=== PATIENT | female | born 1975 | race Caucasian/White ===

== ENCOUNTER 2020-01-26 15:48 | Outpatient (CLI) | payer OTHER, SELFPAY ==
--- NOTE | ~2020-01-26 | XR_ITS ---
XR chest 2V 01/26/2020 16:26 Indication: Cough. Covid Positive. Procedure: 2 view chest Comparison: No prior studies for comparison. Findings: Heart size is normal. Calcified granulomas right mid thorax. No focal air space disease, pu lmonary edema, pleural effusion or suspected pneumothorax. There is scoliosis. No acute osseous abnor mality. Impression: 1: No acute cardiopulmonary disease. Reviewed, dictated and finalized at location A. DESK TEAM LEADER Impression: 1: No acute cardiopulmonary disease.
== END 2020-01-26 15:49 | disposition home or self-care (01) ==
LOC: ANHIMG 15:59
PROVIDERS: PCP Family Medicine; Visit Provider Physician Assistant
DX: R05 Cough (principal)
CPT/HCPCS: 71046

== ENCOUNTER 2022-01-17 09:17 | Outpatient (CLI) | payer OTHER, SELFPAY ==
--- NOTE | ~2022-01-17 | MM_ITS ---
EXAMINATION: MM screening sumit BI w onelia HISTORY: Baseline screening mammogram TECHNIQUE: Craniocaudal and mediolateral oblique 3-D tomosynthesis images were obtained and synthetic 2-D images were generated. CAD analysis was submitted and interpreted. COMPARISON: None, baseline BREAST PARENCHYMAL COMPOSITION: The breasts are almost entirely fatty. FINDINGS: RIGHT BREAST: No suspicious mass, calcification, or architectural distortion are identified to sugges t malignancy. LEFT BREAST: There is possible architectural distortion in the middle third of the upper inner quadra nt of the breast. An asymmetry is also noted in the posterior third far outer breast approximately 15 cm from the nipple on the craniocaudal view. IMPRESSION: 1. Left breast asymmetry and possible left breast architectural distortion. 2. Additional mammographic views and possible breast ultrasound are recommended. BI-RADS Category 0: Incomplete: Needs additional imaging evaluation. Reviewed, dictated and finalized at location A. IOLOGY TEACHER IMPRESSION: 1. Left breast asymmetry and possible left breast architectural distortion. 2. Additional mammographic views and possible breast ultrasound are recommended . BI-RADS Category 0: Incomplete: Needs additional imaging evaluation.
== END 2022-01-17 09:18 | disposition home or self-care (01) ==
LOC: ANHIMG 09:20
PROVIDERS: PCP Family Medicine; Visit Provider Obstetrics & Gynecology
DX: Z12.31 Encounter for screening mammogram for malignant neoplasm of breast (principal); R92.8 Other abnormal and inconclusive findings on diagnostic imaging of breast
CPT/HCPCS: 77063; 77067

== ENCOUNTER 2022-02-07 11:22 | Outpatient (CLI) | payer OTHER, SELFPAY ==
--- NOTE | ~2022-02-07 | MMUS_ITS ---
EXAMINATION: MM diagnostic sumit LT w onelia, US breast LT limited HISTORY: Left breast asymmetry and possible architectural distortion on 01/17/2022 screening mammogram TECHNIQUE: Additional 3-D tomosynthesis images of the left breast were performed and synthetic 2-D im ages were generated. CAD analysis was submitted and interpreted. High resolution upper inner quadrant left breast ultrasound was performed. COMPARISON: 01/17/2022 bilateral screening mammogram FINDINGS: MAMMOGRAPHIC FINDINGS: The asymmetric density in the posterior outer left breast on 01/17/2022 screening mammogram is not con firmed on coned compression view and is mild of significance. No suspicious reproducible mass on orthogonal views or architectural distortion, malignant calcificat ion, skin thickening or retraction of the left breast is noted otherwise. ULTRASOUND: Upper inner quadrant left breast ultrasound examination was performed, including the area of possible architectural distortion suggested on 01/17/2022 screening mammogram examination. No suspicious mass or shadowing or other significant sonographic abnormality is identified. IMPRESSION: 1. No mammographic evidence of malignancy 2. Routine mammographic screening is recommended BI-RADS Category 1: Negative Reviewed, dictated and finalized at location A. HEATER IMPRESSION: 1. No mammographic evidence of malignancy 2. Routine mammographic screening is recommended BI-RADS Category 1: Negative
== END 2022-02-07 11:23 | disposition home or self-care (01) ==
PROVIDERS: PCP Family Medicine; Visit Provider Obstetrics & Gynecology
DX: N64.89 Other specified disorders of breast (principal)
CPT/HCPCS: 76642; 77061; 77065; G0279

== ENCOUNTER 2022-07-15 01:30 | Day surgery (SDC) | payer OTHER, SELFPAY ==
[2022-07-04 12:31] VITALS: BMI 46.9
[2022-07-15 08:11] VITALS: BP 130/93; PULSE 94; RESP 16; TEMP 36.1; O2SAT 97; BMI 47.6
[2022-07-15] MEDS: LACTATED RINGERS 1,000 ML 150 ML IV CONT (08:23)
--- NOTE | 2022-07-15 08:46 | WPDANESEPPF ---
Anes - Initial Pre Proc Eval Procedure: Operation Date: 07/15/22 09:30 Proposed Procedures p Screening Colonoscopy - Medhat Melgar MD Date/Time: 07/15/22 08:46 Surgeon: Medhat Melgar MD Pre Op Diagnosis: fam hx of colon polyps Patient Data Age: 46 Gender: F Height: 1.65 m Weight: 129.9 kg Last Vital Signs Temp 36.1 C L 07/15/22 08:11 Pulse 94 07/15/22 08:11 Resp 16 07/15/22 08:11 BP 130/93 H 07/15/22 08:11 Pulse Ox 97 07/15/22 08:11 O2 Del Method Room Air 07/15/22 08:11 Allergies Allergy/AdvReac Type Severity Reaction Status Date / Time No Known Allergies Allergy Verified 07/15/22 08:10 Home Medications Medication Instructions Recorded Confirmed Type levonorgestrel 21 mcg/24 hours (8 1 device intrauterine ONCE 11/08/21 07/15/22 History yrs) 52 mg intrauterine device (Mirena) Patient hx anesthesia problems: none Family hx anesthesia problems: none Results Review: All pre-operative results and documents have been reviewed as part of the pre-operative evaluation. COUNT INCLUDES THE [facility] Past Medical History Medical History Breast asymmetry Encounter for insertion of mirena IUD 11/15/2015 Screening mammogram for breast cancer Vaginal delivery Surgical History Surgical History H/O gynecological procedure cervical biopsy/colposcopy---benign History of appendectomy Hx of tonsillectomy Family History Family History Father Diabetes mellitus Brain tumor Mother Emphysema lung Memory loss Alzheimer's dementia Cerebrovascular accident Cancer of kidney Social History Social History Smoking packs per day: 0.5 Smoking cigarettes per day: 10.0 Years smoked: 7 Smoking pack-years: 3.50 Smoking status: Former smoker Tobacco type: cigarettes Additional smoking assessment comments: smoked off and on for 7 years. 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 Gender identity (if verbalized by the patient): Female Sexual Orientation (if Verbalized by the Patient): Straight or Heterosexual Spiritual care concerns: No Anes - Eval Final PreProcedure Day of Procedure 07/15/22 08:46 Patient weight: morbidly obese Heart: regular rate and rhythm Lungs: clear to auscultation Airway: Mallampati scale class II Neurological: alert and oriented Last oral intake: >/= 8 hours ASA classification: III Emergent: no Anesthetic plan: proceed Anesthesia type and monitoring: general GIVS and standard monitoring Results Review: All pre-operative results and documents have been reviewed as part of the pre-operative evaluation. Informed Consent: The patient's anesthetic plan and its attendant risks and benefits were discussed with the patient/family/POA. Questions were solicited and answers provided to the satisfaction of the patient/family/POA.
--- NOTE | 2022-07-15 09:04 | PM.HPGS ---
History of Present Illness History of Present Illness Consent: Risks, benefits, and alternatives have been discussed and questions answered. Patient agrees to proceed with procedure. Chief complaint: fam hx of colon polyps Narrative: Britni Taylor is a 46 year old female here for first screening colonoscopy Review of Systems Constitutional: Constitutional: Denies headache(s) and Denies weakness Eyes: Eyes: Denies blurry vision ENT: Reports Normal hearing present, Denies headache(s) and Denies neck pain Cardiovascular: Cardiovascular: Denies chest pain and Denies dyspnea Respiratory: Respiratory: Denies dyspnea Gastrointestinal: Gastrointestinal: Reports no additional gastrointestinal complaints Genitourinary: Genitourinary: Denies dysuria Musculoskeletal: Musculoskeletal: Denies neck pain Integumentary/Breasts: Skin/Breast: Denies dry skin Neurologic: Reports Normal hearing present, Denies headache(s) and Denies weakness Psychiatric: Psychiatric: Denies anxiety Endocrine: Endocrine: Denies change in body appearance Hematologic/Lymphatic: Hematologic/Lymphatic: Denies easy bleeding Allergic/Immunologic: Allergic/Immunologic: Denies urticaria PMFSH Past Medical History Medical History (Updated 07/15/22 @ 09:05 by Medhat Melgar MD) Breast asymmetry Colon cancer screening Encounter for insertion of mirena IUD 11/15/2015 Screening mammogram for breast cancer Vaginal delivery Surgical History Surgical History H/O gynecological procedure cervical biopsy/colposcopy---benign History of appendectomy Hx of tonsillectomy Family History Family History Father Diabetes mellitus Brain tumor Mother Emphysema lung Memory loss Alzheimer's dementia Cerebrovascular accident Cancer of kidney Social History Social History Smoking packs per day: 0.5 Smoking cigarettes per day: 10.0 Years smoked: 7 Smoking pack-years: 3.50 Smoking status: Former smoker Tobacco type: cigarettes Additional smoking assessment comments: smoked off and on for 7 years. Alcohol intake: never Substance use: never Substance use type: does not use Lack of Transportation: No Current Housing: I Have Housing Difficulty Paying Gas/Electric Bills: No Difficulty Paying for Meds: No Currently Unemployed: No Education: High School Diploma/GED Difficulty w/ Childcare or Family Care: No Living arrangements: with family Occupation/Education: occupation Additional occupation/education comments: VALVE ASSEMBLER Gender identity (if verbalized by the patient): Female Sexual Orientation (if Verbalized by the Patient): Straight or Heterosexual Spiritual care concerns: No Meds Home Medications and Allergies Home Medications Medication Instructions Recorded Confirmed Type levonorgestrel 21 mcg/24 hours (8 1 device intrauterine ONCE 11/08/21 07/15/22 History yrs) 52 mg intrauterine device (Mirena) Allergies Allergy/AdvReac Type Severity Reaction Status Date / Time No Known Allergies Allergy Verified 07/15/22 08:10 Vital Signs Vital Signs - 24 hr 07/15/22 08:11 Temperature 96.9 F L Pulse Rate 94 Respiratory Rate 16 Blood Pressure 130/93 H Pulse Oximetry 97 Oxygen Delivery Room Air Exam Const: General: comfortable and no acute distress HENMT: Face/Nose/Sinus: Normal nares present Eyes: General: appearance normal, both eyes and all related structures Neck: Neck: no JVD Resp: Auscultation: clear to auscultation bilaterally Cardio: Rate: regular rate Rhythm: regular rhythm GI: Inspection: non-distended GI Palp: Yes Soft to palpation Skin: General skin exam: normal color Neuro: General: gait normal Speech: normal speech Extrem: General: normal to inspection Psych: Mental St
[2022-07-15 09:24] VITALS: BP 104/61; PULSE 71; RESP 16; O2SAT 96
[2022-07-15 09:34] VITALS: BP 113/72; PULSE 66; RESP 16; O2SAT 98
[2022-07-15 09:44] VITALS: BP 109/67; PULSE 70; RESP 24; O2SAT 100
== END 2022-07-15 09:49 | disposition home or self-care (01) ==
PROVIDERS: PCP Family Medicine; Visit Provider Internal Medicine Gastroenterology
PROC: 0DJD8ZZ Inspection of Lower Intestinal Tract, Via Natural or Artificial Opening Endoscopic (ICD-10-PCS; CPT 45378; principal; 2022-07-15 09:30)
DX: Z12.11 Encounter for screening for malignant neoplasm of colon (principal); K57.30 Diverticulosis of large intestine without perforation or abscess without bleeding; K64.8 Other hemorrhoids; Z83.71 Family history of colonic polyps; Z87.891 Personal history of nicotine dependence; E66.01 Morbid (severe) obesity due to excess calories; Z68.42 Body mass index [BMI] 45.0-49.9, adult
CPT/HCPCS: 45378; J2704; J7120

== ENCOUNTER 2022-10-04 15:02 | Outpatient (CLI) | payer OTHER, SELFPAY ==
--- NOTE | ~2022-10-04 | XR_ITS ---
EXAMINATION: XR lumbar spine min 4V, XR hip RT min 3V w AP pelvis DATE: 10/04/2022 15:36 INDICATION: Leg pain and right hip pain. TECHNIQUE: 1. Anteroposterior, lateral, and bilateral oblique views of the lumbar spine, and cone-down lateral v iew of the lumbosacral junction were obtained. 2. AP view of the pelvis and AP, frog-leg lateral and crosstable lateral views of the right hip were obtained. COMPARISON: None. FINDINGS: Lumbar spine: 3 degrees lumbar levocurvature. 3 mm anterolisthesis L4 on L5 and L5 on S1. Vertebral body heights ar e normal. Mild disc height loss at L1-L2, L4-L5 and L5-S1. Mild to moderate disc height loss with deg enerative endplate osteophytes at 11-12 and T12-L1. No pars interarticularis defects. Severe bilatera l facet osteoarthritis at L4-L5 and L5-S1. Heart facet osteoarthritis in the more cephalad lumbar spi ne. Pelvis and right hip: Alignment is normal. No fracture or suspected avascular necrosis. Mild left hip osteoarthritis. Right hip and bilateral sacroiliac joint spaces are normal. IMPRESSION: 1. Mild lumbar spondylosis with moderate to severe lower lumbar predominant facet osteoarthritis. 2. Mild left hip osteoarthritis. Right hip joint space is normal. Reviewed, dictated and finalized at location A. IMPRESSION: 1. Mild lumbar spondylosis with moderate to severe lower lumbar predominant fac et osteoarthritis. 2. Mild left hip osteoarthritis. Right hip joint space is normal.
== END 2022-10-04 15:03 | disposition home or self-care (01) ==
PROVIDERS: PCP Family Medicine; Visit Provider Family Medicine
DX: M25.551 Pain in right hip (principal); M54.30 Sciatica, unspecified side; M47.816 Spondylosis without myelopathy or radiculopathy, lumbar region; M16.12 Unilateral primary osteoarthritis, left hip
CPT/HCPCS: 72110; 73502

== ENCOUNTER 2024-08-04 16:50 | Emergency (ER) | payer OTHER, SELFPAY ==
[2024-08-04 17:35] VITALS: BP 130/83; PULSE 80; RESP 18; TEMP 36.6; O2SAT 98
--- NOTE | 2024-08-04 18:16 | ED_ITS ---
HPI - Ear Problem General Chief complaint: Ear Stated complaint: Right Ear Irritation/Dizziness Time Seen by Provider: 08/04/24 16:54 Source: patient Mode of arrival: ambulatory Limitations: no limitations History of Present Illness HPI Narrative: patient is a 48-year-old female presenting with complaint of right ear irritation. Patient reports irrigating her right ear this morning, which she does often due to small ear canals. Patient states she purchase the device off of [employer] and has used that in the past without issue. Patient states while irrigating her right ear this morning, she felt some discomfort and became dizzy. States the symptoms resolved however, the discomfort has since returned. No additional complaints. *PCP called in prednisone and abx ear gtts this morning (pt was not evalu ated)--pt has not began taking these medications* Related Data Allergies Allergy/AdvReac Type Severity Reaction Status Date / Time No Known Allergies Allergy Verified 08/04/24 17:12 Review of Systems Review of Systems: CONSTITUTIONAL: Denies body aches, fever, chills, or sweats. EYES: Denies visual changes, redness, or discharge. ENT: Reports right otalgia, denies rhinorrhea, congestion, sore throat CARDIOVASCULAR: Denies chest pain, palpitations, or edema. RESPIRATORY: Denies cough or dyspnea. GASTROINTESTINAL: Denies abdominal pain, nausea, vomiting, or diarrhea. GENITOURINARY: Denies dysuria or hematuria. SKIN: Denies rash, itching, or wounds. MUSCULOSKELETAL: Denies back pain, joint pain, or myalgia. NEUROLOGIC: Denies headache, numbness, tingling, or weakness. PSYCH: Denies depression or anxiety. All systems reviewed & are unremarkable except as noted in HPI and below PMFSH Past Medical History Medical History Colon cancer screening Breast asymmetry Screening mammogram for breast cancer Encounter for insertion of mirena IUD 11/15/2015 Vaginal delivery Surgical History Surgical History H/O gynecological procedure cervical biopsy/colposcopy---benign History of appendectomy Hx of tonsillectomy Family History Family History Father Diabetes mellitus Brain tumor Mother Emphysema lung Memory loss Alzheimer's dementia Cerebrovascular accident Bladder cancer Social History Social History Smoking packs per day: 0.5 Smoking cigarettes per day: 10.0 Years smoked: 7 Smoking pack-years: 3.50 Smoking status: Former smoker Tobacco type: cigarettes Additional smoking assessment comments: smoked off and on for 7 years. 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 HEAD: Normocephalic, atraumatic. EYES: EOMI. No redness or drainage. Conjunctivae normal. ENT: Mucous membranes pink and moist. Nares clear. No rhinorrhea. cerumen impaction noted bilaterally. TMs normal bilaterally. Throat normal. Uvula midline. NECK: Normal AROM. Supple. No lymphadenopathy. CHEST: No respiratory distress. HEART: normal rate and rhythm. EXTREMITIES: Normal range of motion. No edema. SKIN: Warm, dry, no rash. Capillary refill normal. Normal skin turgor. NEURO: No focal deficits. Alert and oriented x3. Gait steady. PSYCH: Normal affect. No signs of depression or anxiety. Course Course Emergency Course: Please be advised this is a medical document. It is intended for [id number] communication. It is written in medical language and may contain unfamiliar abbreviations or verbiage. Medical documents are intended to carry relevant information, facts as evident, and the clinical opinion of the practitioner at the time of the encounter. This dictation may have been done utilizing a voice recognition system. Attempts have been made to correct errors. However, there may be uncorrected grammatical, spelling, and recognition errors present. Level of Care: Express Care Visit Vital Signs Vital signs: Vital Signs Temperature 98 F 08/04/24 17:35 Pulse Rate 80 08/04/24 17:35 Respiratory Rate 18 08/04/24 17:35 Blood Pressure 130/83 08/04/24 17:35 Pulse Oximetry 98 08/04/24 17:35 Oxygen Delivery CPAP 08/04/24 17:35 Temperature 98 F 08/04/24 17:35 Pulse Rate 80 08/04/24 17:35 Respiratory Rate 18 08/04/24 17:35 Blood Pressure 130/83 08/04/24 17:35 Pulse Oximetry 98 08/04/24 17:35 Oxygen Delivery CPAP 08/04/24 17:35 Procedures Ear Wax Removal Both Ears: Ear Wax Removal Date: 08/04/24 Ear Wax Removal Time: 18:22 Cerumenolytic Used: other (NS) Results: Re-examined: cerumen removed completely TM Examination: TM(s) intact, normal appearance Ear Canal Exam: atraumatic Patient Tolerated Procedure: well Complications: no problems Technique: ear canal irrigated Medical Decision Making Vital Signs Vital Signs: Vital Signs Temperature 98 F 08/04/24 17:35 Pulse Rate 80 08/04/24 17:35 Respiratory Rate 18 08/04/24 17:35 Blood Pressure 130/83 08/04/24 17:35 Pulse Oximetry 98 08/04/24 17:35 Oxygen Delivery CPAP 08/04/24 17:35 Temperature 98 F 08/04/24 17:35 Pulse Rate 80 08/04/24 17:35 Respiratory Rate 18 08/04/24 17:35 Blood Pressure 130/83 08/04/24 17:35 Pulse Oximetry 98 08/04/24 17:35 Oxygen Delivery CPAP 08/04/24 17:35 Discharge Plan Discharge Clinical Impression: Bilateral impacted cerumen, Elevated blood pressure reading in office without diagnosis of hypertension Patient Disposition: Home Condition: Stable Instructions: Antibiotic Form Additional Instructions: Go straight to ER should your symptoms become worse or should any new symptoms develop Patient Language: [place] Prescriptions: No Action prednisone 20 mg tablet 60 mg PO DAILY Qty: 15 0RF Mirena 21 mcg/24 hours (8 yrs) 52 mg intrauterine device 1 device intrauterine ONCE Qty: 1 0RF prednisone 10 mg tablet See Rx Instructions PO DAILY Qty: 42 0RF Rx Instructions: 6 po qdayx 2 days, 5 x 2days,4 x 2 d,3 x 2d,2 x 2d, 1 x 2 days PO daily; ofloxacin 0.3 % drops 5 drp RIGHT EAR BID 7 Days Qty: 5 0RF Follow-up/Referrals: Virgil Tate MD [Primary Care Provider] - 08/04/24 Time of Disposition: 18:20
== END 2024-08-04 18:50 | disposition home or self-care (01) ==
PROVIDERS: Emergency Provider Registered Nurse; PCP Family Medicine
DX: H61.23 Impacted cerumen, bilateral (principal); R03.0 Elevated blood-pressure reading, without diagnosis of hypertension; Z87.891 Personal history of nicotine dependence
CPT/HCPCS: 69209; 99212; G0463